=== PATIENT | male | born 1955 | race African-American/Black ===

== ENCOUNTER 2017-01-04 05:12 | Day surgery (SDC) | payer OTHER ==
[~2017-01-04] VITALS: Ht 182.9 cm; Wt 78.0 kg
--- NOTE | ~2017-01-04 | S ---
[facility] [place] [address] SURGICAL PATH RPT PROCEDURE Name: BROOKE BRYSON Room #: DEP [facility] M.R.#: [id number] Admission: 01/04/17 Date of : 57 Discharge: 01/04/17 Report #: [id number] Path Case #: [id number] PATHOLOGY REPORT COLLECTION DATE: 01/04/2017 RECEIVED DATE: 01/04/2017 SUBMITTING PHYS: Dr. Ji Gonzalez OTHER PHYS: SPECIMEN(S) RECEIVED: A.Tissue from left buttock decubitus * * * * * * * * * * * * FINAL DIAGNOSIS: Skin and subcutaneous tissue, tissue from left buttock decubitus, excision: - Ulceration and marked acute inflammation extending into subcutaneous tissues, consistent with the provided history of decubitus ulcer. (IUV:csd; d/t: 01/05/2017) PATHOLOGIST: Susana Cotto M.D. REPORT ELECTRONICALLY SIGNED BY: Susana Cotto M.D. DATE/TIME: 01/05/2017 14:32 * * * * * * * * * * * * GROSS PATHOLOGY: The specimen is received in formalin labeled "Brooke Bryson left buttock wound tissue". Received is an irregular segment of white-boggs pink to davies-boggs skin with attached yellow-boggs fibroadipose tissue measuring 3.7 x 3.6 x 3.0 cm in greatest dimensions. The specimen displays a circular defect measuring 1.4 x 1.0 cm which probes through the depth of the entire specimen. The specimen is submitted representatively in cassette A1. (CAA; 01/04/2017) CLINICAL HISTORY: Sacral decubitus INITIAL CPT CODE(S): A; 37025 Professional services performed by [facility] at [facility] [address], [place] [address] [facility] [address] [place] [address] SURGICAL PATH RPT PROCEDURE Name: MARGOBROOKE Room #: DEP [facility] Diego.#: [id number] Admission: 01/04/17 Date of : 57 Discharge: 01/04/17 Report #: [id number] Path Case #: [id number] Technical services performed by [facility] at [address] [place] [address], [facility] [address] [address]. [place] [address] PHONE: [phone] DIRECTOR: Clayton So M.D. * * * END OF REPORT * * *
--- NOTE | ~2017-01-04 | O ---
[facility] [place] [address] OPERATIVE REPORT Name: BROOKE ARAGON Room #: 150-2 [facility] M.R.#: [id number] Admission: 01/04/17 Attend Phys: Ji Gonzalez MD, Discharge: Date of : 57 Report #: [id number] THIS REPORT FOR: //name// CC: Ji Aguileraanipadmini DATE OF SERVICE: 01/04/2017 PREOPERATIVE DIAGNOSES: 1. Sacrogluteal decubitus ulcer. 2. Cerebral palsy. 3. Atrial fibrillation. POSTOPERATIVE DIAGNOSES: 1. Left ischial stage IV decubitus wound. 2. Cerebral palsy. 3. Atrial fibrillation. PROCEDURE PERFORMED: Excisional debridement of skin, subcutaneous tissue, muscle and bone of a left ischial decubitus wound, ultimately measuring 7 x 6 cm in dimension (42 square cm). Preoperative wound measurements were 2 x 2 cm with significant effie-wound induration and tunneling from the skin level, all the way down the narrow passage to the left ischial bone. SURGEON: Ji Gonzalez M.D. SHANK TAPPER: Daniel Montano MS3. ANESTHESIA: General endotracheal anesthesia. ESTIMATED BLOOD LOSS: Minimal (less than 10 mL). COMPLICATIONS: None appreciated. SPECIMENS: Culture swab to microbiology, as well as all excised tissue including bone to pathology. INDICATIONS: The patient is a 61-year-old -Slovenian male, with a longstanding history of cerebral palsy and generalized debilitation with blindness, who resides at a nursing home facility, and has had several decubitus wounds over the past, which underwent bedside debridement, and an aggressive local wound care. Unfortunately, the patient had recurrence of decubitus wounds about his sacral gluteal regions, and the patient was referred to me for evaluation. The examination in the office was quite difficult as the patient was very intolerant to positioning; however, it appeared the patient had severe sacral gluteal wounds. Indication was for debridement today and once [facility] [address] [place] [address] OPERATIVE REPORT Name: BROOKE ARAGON Room #: 150-2 [facility] M.R.#: [id number] Admission: 01/04/17 Attend Phys: Ji Gonzalez MD, Discharge: Date of : 57 Report #: [id number] positioned in the operating room, and is in the prone position, it was obvious that this was in fact a left ischial stage IV decubitus wound with a long tunneled tract, all the way to the left ischial bone. DESCRIPTION OF PROCEDURE: After explaining the risks, benefits, and alternatives of the procedure with the patient, as well as his parents and obtaining consent from his mother who is his DPOA. The patient was brought to the operating room, supine on his hospital bed. After conducting a thorough timeout procedure verifying correct patient and procedure, the patient was given general endotracheal anesthesia. Once adequate anesthesia was obtained, his SCDs were hooked up to the pneumatic compression device, and he was given a preoperative dose of antibiotics in line with the SCIP protocol. The patient was then positioned on the operating room table in the prone position with all pressure points appropriately padded. The patient's wound was exposed and prepped and draped in the standard surgical sterile fashion. Electrocautery was used to circumferentially debride all skin, subcutaneous tissue, and muscle from the periphery of the wound, carrying this down to the bed of the wound where there was bone evident. Culture swabs were taken and passed off the field for microbiologic analysis. Electrocautery was used to resect all nonviable bone, as well was taking this back to healthy bleeding bone. [employer] ultrasonic debridement tool was used to remove all biofilm, as well as remaining nonviable tissue. Electrocautery was then used again for hemostasis throughout. The wound was then packed tightly with sterile saline soaked Kerlix gauze, dressed with ABDs, and Medipore tape. At the end of the procedure, all instrument, needle, and sponge counts were correct. The patient tolerated the procedure without incident, was awakened in the operating room and transitioned to the recovery room in stable condition with no apparent complications. <ELECTRONICALLY SIGNED> By: Ji Gonzalez MD, FACS 01/04/17 1504 0915 1128 Ji Gonzalez MD, FACS /nt
--- NOTE | ~2017-01-04 | EKG ---
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
[~2017-01-04 05:12] MED LIST: ALDACTONE50 MG PO; ASPIR 8181 M1 PO; COLACE100 MG PO; DAILY VALUE1 EAC1 PO; DAKIN'S473 M1 TOP; DEPAKOTE250 MG PO; DEPAKOTE500 MG PO; DILANTIN100 MG PO; ENSURE PLUS237 ML PO; ENULOSE10 GM/15 M PO; FLOMAX0.4 MG PO; IRON325 PO; METOLAZONE 5 MG5 MG PO; MIRALAX17 GM PO; NEURONTIN 300300 M1 PO; ONDANSETRON HCL4 M2 PO; PEPCID20 MG PO; PHENOBARBITAL97.2 MG PO; POTASSIUM20 PO; TRAZODONE HCL50 MG PO; TYLENOL325 MG PO; UNASYN 3 GM VIAL3 G1 IV; VANCO 1.251.25 GM/25 IV; VITAMIN C500 MG PO; ZOFRAN ODT4 M1 PO; ZOFRAN ODT4 MG PO
[2017-01-04 07:46] LABS: CALCIUM 9.3 mg/dL (8.5-10.1); CREATININE 1.3 mg/dL (0.6-1.3)
== END 2017-01-04 09:40 ==
LOC: OR 05:12 → TBA 05:12 → OR 09:40
PROVIDERS: Surgery
DX: S71.002A Unspecified open wound, left hip, initial encounter (principal); G80.9 Cerebral palsy, unspecified; I48.91 Unspecified atrial fibrillation; D64.9 Anemia, unspecified; F32.9 Major depressive disorder, single episode, unspecified; X58.XXXA Exposure to other specified factors, initial encounter; Y93.89 Activity, other specified; Y92.89 Other specified places as the place of occurrence of the external cause; Y99.8 Other external cause status; Z98.890 Other specified postprocedural states
CPT/HCPCS: 50010; 50101; 50386; 50403; 53353; 53354; 62110; 62900; 70005

== ENCOUNTER 2017-08-02 06:56 | Inpatient (IN) | payer OTHER ==
[~2017-08-02] VITALS: Ht 177.8 cm; Wt 82.7 kg
--- NOTE | ~2017-08-02 | HC ---
[facility] [address] [place] [address] CONSULTATION Name: BROOKE ARAGON Room #: 217-P ADM IN M.R.#: [id number] Admission: 08/02/17 Attend Phys: Hunter De DO Discharge: Date of : 57 Report #: [id number] THIS REPORT FOR: //name// CC: FAM unknown Hunter De REASON FOR CONSULTATION: I was asked to evaluate concerning sepsis. HISTORY OF PRESENT ILLNESS: The patient is a 62-year-old with underlying history of cerebral palsy, multiple pressure wounds to his feet who is fairly incapacitated due to his neurologic issues and presents with decreased mental status, fever, tachycardia. Emergency Room evaluation after being transferred from [facility] revealed a creatinine up to 2.0 with a BUN of 105, white count of 19.6 and UA with many wbc's and many bacteria. The patient was unable to give any details. He was arousable and when asked questions, he stated that he did feel okay, but could not elaborate on any further questions. ALLERGIES: None known. MEDICATIONS: As noted on his MAR, which were reviewed. PAST MEDICAL HISTORY: Atrial fibrillation, cerebral palsy, left ankle osteomyelitis, multiple pressure wounds as noted, anemia, seizure disorder, ischemic heart disease, depression, urinary retention with a suprapubic catheter in place, dysphagia, bilateral cataract surgery, craniotomy for convulsions, macular degeneration right eye, myocutaneous flap to left hip wound. FAMILY HISTORY AND SOCIAL HISTORY: Otherwise, noncontributory. He is a nonsmoker. REVIEW OF SYSTEMS: The patient was unable to give me any further details, but he has been off oxygen with O2 saturation 95% on room air. No diarrhea. Peripheral IV in place. No vomiting. PHYSICAL EXAMINATION: VITAL SIGNS: Temperature 101.5, pulse 89, blood pressure 102/69. GENERAL: He was awake, able to respond, but in general was fairly lethargic. SKIN: He had healed wounds to his buttock region. EXTREMITIES: Multiple pressure wounds to his left foot and ankle region. Chronic appearing wound to his right ankle, lateral malleolus and a smaller wound over the plantar aspect of his medial heel. CHEST: Clear. HEART: Regular. ABDOMEN: Soft and nontender. Suprapubic catheter was in place with purulent urine in the tubing. LABORATORY STUDIES: Lactate 1.7. Urinalysis, many wbc's and many bacteria. [address] [address] CONSULTATION Name: BROOKE ARAGON Room #: 217-P [facility] IN .R.#: [id number] Admission: 08/02/17 Attend Phys: Hunter De DO Discharge: Date of : 57 Report #: [id number] Urine culture and blood cultures are pending. Chest x-ray, no acute pulmonary infiltrate. Sodium 149, potassium 4.5, bicarbonate of 33, creatinine was 2. Liver function test normal. Albumin at 3.2. Hemoglobin 16.7, platelet count 397,000, white count was 19.6. IMPRESSION: A 62-year-old care home resident with sepsis and findings of decreased mental status, leukocytosis, acute renal failure. I suspect source is urinary tract Also, has pressure wounds. Cerebral palsy. Blind in his right eye. RECOMMENDATION: We will continue IV antibiotic therapy for healthcare-associated sepsis. Urinary tract, most likely source. Continue with wound care. I have discussed with wound care team. We will need further offloading of both feet. Antibiotics will be adjusted for his renal failure. Repeat laboratory studies. Check ultrasound to ensure no obstruction. <ELECTRONICALLY SIGNED> By: Teo Ashton MD 08/03/17 1937 1146 1353 Teo Ashton MD /nt
[2017-08-02 06:57] VITALS: BP 125/71
[2017-08-02 07:20] LABS: HEMATOCRIT 51.1 % (42.0-52.0); HEMOGLOBIN 16.7 gm/dL (14.0-18.0); MCH 27.5 pg (26.0-34.0); MCHC 32.6 g/dL (28.0-37.0); MCV 84.2 fL (80.0-100.0); RBC 6.06 mil/uL (4.50-6.00); RDW 15.7 % (10.5-14.5); WBC 19.6 thou/uL (4.0-11.0)
[2017-08-02 07:32] LABS: URINE BLOOD 3+ (Negative); URINE COLOR YELLOW; URINE GLUCOSE-RANDOM* NEGATIVE (Negative); URINE KETONES TRACE (Negative); URINE PROTEIN (DIPSTICK) 3+ (Negative); URINE UROBILINOGEN 0.2 E.U./dl (0.2-1.0)
[2017-08-02 07:33] LABS: ANION GAP 9 mmol/L (7-16); BUN 105 mg/dL (7-18); CALCIUM 9.5 mg/dL (8.5-10.1); CHLORIDE 105 mmol/L (98-107); CO2 33 mmol/L (21-32); GLUCOSE 173 mg/dL (74-106); POTASSIUM 4.5 mmol/L (3.5-5.1); SODIUM 147 mmol/L (136-145)
[2017-08-02 07:37] LABS: URINE LEUKOCYTES-REFLEX 3+ (Negative)
[2017-08-02 07:38] LABS: ICTOTEST (BILI CONFIRMATORY) Negative (Negative); URINE BILIRUBIN NEGATIVE (Negative)
[2017-08-02 07:42] LABS: ALBUMIN 3.2 g/dL (3.4-5.0); ALKALINE PHOSPHATASE 97 U/L (46-116); SGOT 32 U/L (15-37); SGPT 47 U/L (30-65); TOTAL BILIRUBIN 0.5 mg/dL (<0.1-1.0); TOTAL PROTEIN 9.2 g/dL (6.4-8.2); TROPONIN-I < 0.04 ng/mL (<0.04-0.07)
[2017-08-02 07:52] LABS: CASTS None Seen /LPF (None Seen); SQUAMOUS None Seen /LPF (0-3); URINE WBC-REFLEX >25 Many /HPF (0-5)
[2017-08-02 07:53] LABS: URINE RBC 3-10 Few /HPF (0-2)
[2017-08-02 08:58] VITALS: BP 116/79
[2017-08-02 09:27] VITALS: BP 102/69
[2017-08-02 10:28] VITALS: BP 98/64
[2017-08-02 15:49] VITALS: BP 102/50
[2017-08-02 20:09] VITALS: BP 124/98
[2017-08-03 04:29] LABS: HEMATOCRIT 40.5 % (42.0-52.0); MCH 27.1 pg (26.0-34.0); MCV 84.7 fL (80.0-100.0); RBC 4.78 mil/uL (4.50-6.00); RDW 15.4 % (10.5-14.5); WBC 13.7 thou/uL (4.0-11.0)
[2017-08-03 04:35] LABS: CALCIUM 8.7 mg/dL (8.5-10.1); CREATININE 1.3 mg/dL (0.7-1.3); MAGNESIUM 3.1 mg/dL (1.8-2.4)
[2017-08-03 04:39] LABS: HEMOGLOBIN 12.9 gm/dL (14.0-18.0); MANUAL DIFF YES; PLATELET COUNT 289 thou/uL (150-400)
[2017-08-03 04:44] VITALS: BP 89/42
[2017-08-03 04:48] LABS: POTASSIUM 2.8 mmol/L (3.5-5.1)
[2017-08-03 06:52] LABS: ABSOLUTE NEUTROPHILS 12.6 thou/uL (1.4-8.2); TOTAL CELL COUNT 100
[2017-08-03 07:41] VITALS: BP 83/48
[2017-08-03 12:00] VITALS: BP 89/51
[2017-08-03 15:50] VITALS: BP 91/56
[2017-08-03 20:10] VITALS: BP 102/51
[2017-08-04 03:39] VITALS: BP 92/42
[2017-08-04 07:00] VITALS: BP 89/54
[2017-08-04 11:02] LABS: HEMATOCRIT 39.4 % (42.0-52.0); HEMOGLOBIN 12.4 gm/dL (14.0-18.0); MCH 26.9 pg (26.0-34.0); MCHC 31.5 g/dL (28.0-37.0); MCV 85.4 fL (80.0-100.0); RBC 4.61 mil/uL (4.50-6.00); RDW 15.7 % (10.5-14.5); WBC 9.2 thou/uL (4.0-11.0)
[2017-08-04 11:10] LABS: CALCIUM 8.5 mg/dL (8.5-10.1); CREATININE 1.2 mg/dL (0.7-1.3)
[2017-08-04 11:15] LABS: POTASSIUM 2.8 mmol/L (3.5-5.1)
[2017-08-04 11:22] VITALS: BP 93/45
[2017-08-04 16:00] VITALS: BP 89/51
[2017-08-04 19:22] VITALS: BP 100/50
[2017-08-05 03:24] VITALS: BP 109/38
[2017-08-05 03:58] LABS: ABSOLUTE NEUTROPHILS 5.6 thou/uL (1.4-8.2); BASOPHILS 0.3 % (0.0-2.0); HEMATOCRIT 37.7 % (42.0-52.0); LYMPHOCYTES 18.7 % (24.0-44.0); MCH 27.2 pg (26.0-34.0); MCHC 31.7 g/dL (28.0-37.0); MCV 85.6 fL (80.0-100.0); MONOCYTES 7.4 % (1.0-8.0); PLATELET COUNT 303 thou/uL (150-400); POLYS 73.6 % (36.0-66.0); RBC 4.41 mil/uL (4.50-6.00); RDW 15.4 % (10.5-14.5); WBC 7.7 thou/uL (4.0-11.0)
[2017-08-05 03:59] LABS: MANUAL DIFF NO
[2017-08-05 04:02] LABS: CALCIUM 8.1 mg/dL (8.5-10.1); CREATININE 1.1 mg/dL (0.7-1.3); MAGNESIUM 2.5 mg/dL (1.8-2.4); POTASSIUM 3.4 mmol/L (3.5-5.1)
[2017-08-05 07:50] VITALS: BP 100/63
[2017-08-05 11:52] VITALS: BP 110/47
[2017-08-05 16:45] VITALS: BP 87/50
[2017-08-05 19:45] VITALS: BP 102/48
[2017-08-06 04:15] VITALS: BP 99/51
[2017-08-06 09:01] VITALS: BP 118/51
[2017-08-06] MEDS ORDERED: CEFDINIR300 MG PO (10:33)
== END 2017-08-06 10:43 | DRG 871 ==
LOC: ER 06:56 → 2N 08:20 → EROBS 08:20 → 2N 10:05
PROVIDERS: Emergency Medicine; Nurse Practitioner
DX: A41.9 Sepsis, unspecified organism (principal); N17.1 Acute kidney failure with acute cortical necrosis; E44.1 Mild protein-calorie malnutrition; N39.0 Urinary tract infection, site not specified; E87.0 Hyperosmolality and hypernatremia; I48.91 Unspecified atrial fibrillation; G80.9 Cerebral palsy, unspecified; F32.9 Major depressive disorder, single episode, unspecified; B37.9 Candidiasis, unspecified; R13.10 Dysphagia, unspecified; R07.9 Chest pain, unspecified; R65.20 Severe sepsis without septic shock; G40.909 Epilepsy, unspecified, not intractable, without status epilepticus; H54.40 Blindness, one eye, unspecified eye; Z23 Encounter for immunization; Z98.42 Cataract extraction status, left eye; Z86.73 Personal history of transient ischemic attack (TIA), and cerebral infarction without residual deficits; Z98.41 Cataract extraction status, right eye; Z68.26 Body mass index [BMI] 26.0-26.9, adult
CPT/HCPCS: 10081

== ENCOUNTER 2020-09-08 10:21 | Emergency (ER) | payer OTHER ==
[~2020-09-08] VITALS: Ht 182.9 cm; Wt 95.7 kg
[~2020-09-08 10:21] MED LIST changes: +CEFDINIR300 MG PO
[2020-09-08] MEDS ORDERED: DILANTIN 100 M100 MG PO (10:24)
[2020-09-08] MEDS ORDERED: LINZESS145 MCG PO (10:25)
[2020-09-08] MEDS ORDERED: MILK OF MA400 MG/5 M PO (10:29)
[2020-09-08] MEDS ORDERED: OMEPRAZOLE 20 M20 M1 PO (10:30)
[2020-09-08] MEDS ORDERED: SENNA PLUS TAB1 EACH PO (10:30)
[2020-09-08] MEDS ORDERED: SIMVASTATIN80 MG PO (10:31)
[2020-09-08 10:52] LABS: URINE BILIRUBIN NEGATIVE (Negative); URINE BLOOD 2+ (Negative); URINE CLARITY SL CLOUDY; URINE COLOR YELLOW; URINE GLUCOSE-RANDOM* NEGATIVE (Negative); URINE KETONES NEGATIVE (Negative); URINE LEUKOCYTES-REFLEX 3+ (Negative); URINE NITRITE-REFLEX POSITIVE (Negative); URINE PROTEIN (DIPSTICK) 1+ (Negative); URINE SPECIFIC GRAVITY 1.015 (1.005-1.035)
[2020-09-08 10:57] LABS: ABSOLUTE NEUTROPHILS 12.2 thou/uL (1.4-8.2); BASOPHILS 0.2 % (0.0-2.0); HEMATOCRIT 42.4 % (42.0-52.0); HEMOGLOBIN 13.4 gm/dL (14.0-18.0); LYMPHOCYTES 8.2 % (24.0-44.0); MCH 26.3 pg (26.0-34.0); MCHC 31.6 g/dL (28.0-37.0); MCV 83.2 fL (80.0-100.0); MONOCYTES 10.3 % (1.0-8.0); PLATELET COUNT 416 thou/uL (150-400); POLYS 81.3 % (36.0-66.0); RDW 16.5 % (10.5-14.5)
[2020-09-08 11:03] LABS: BACTERIA-REFLEX >30 Many /HPF (None Seen); CASTS None Seen /LPF (None Seen); SQUAMOUS 0-3 Few /LPF (0-3); URINE WBC-REFLEX >25 Many /HPF (0-5)
[2020-09-08 11:04] LABS: CRYSTALS None Seen /LPF (None Seen); URINE RBC 3-10 Few /HPF (0-2)
[2020-09-08 11:06] LABS: CALCIUM 8.7 mg/dL (8.5-10.1)
[2020-09-08 11:12] LABS: ALBUMIN 2.9 g/dL (3.4-5.0); DIRECT BILIRUBIN 0.2 mg/dL (<0.1-0.2); TOTAL BILIRUBIN 0.4 mg/dL (0.2-1.0); TOTAL PROTEIN 7.4 g/dL (6.4-8.2)
[2020-09-08] MEDS ORDERED: KEFLEX500 M1 PO (12:40)
[2020-09-08 13:53] VITALS: BP 118/81
== END 2020-09-08 14:24 ==
LOC: ER 10:21
PROVIDERS: Emergency Medicine
DX: N39.0 Urinary tract infection, site not specified (principal); I48.91 Unspecified atrial fibrillation; Z86.2 Personal history of diseases of the blood and blood-forming organs and certain disorders involving the immune mechanism; Z79.899 Other long term (current) drug therapy; Z79.82 Long term (current) use of aspirin

== ENCOUNTER → 2021-04-09 | Outpatient (CLI) | payer OTHER ==
[~2021-04-09] VITALS: Ht 182.9 cm; Wt 76.0 kg
[~2021-04-09] MED LIST changes: +APAP W/CODEINE1 TA2 PO; -ASPIR 8181 M1 PO; +ASPIRIN EC81 M1 PO; +DILANTIN 100 M100 MG PO; +KEFLEX500 M1 PO; +LINZESS145 MCG PO; +MILK OF MA400 MG/5 M PO; +OMEPRAZOLE 20 M20 M1 PO; +PRO-STAT LIQUID30 M1 PO; +REMERON15 M2 PO; +SENNA PLUS TAB1 EACH PO; +SIMVASTATIN80 MG PO; +ZOCOR 10 MG TAB10 MG PO
[2021-04-09 12:05] VITALS: BP 129/47
--- NOTE | 2021-04-09 15:48 | NUR ---
LATE ENTRY: 1500 PT BROUGHT BACK TO CV HOLDING ROOM 9 AT 1500 FROM PACU. PT AWAKE ALERT. PROCEDURE NOT DONE DUE TO MUSCLE CONTRACTURES. [facility] CALLED FOR TRANSPORTATION BACK TO FACILITY. REPORT TO NIKKO NARANJOITE
== END | disposition home or self-care (01) ==
LOC: CATH 09:37
PROVIDERS: ATTEND Nuclear Medicine Nuclear Cardiology
DX: I73.9 Peripheral vascular disease, unspecified (principal); Z53.8 Procedure and treatment not carried out for other reasons; F32.9 Major depressive disorder, single episode, unspecified; D64.9 Anemia, unspecified; G80.9 Cerebral palsy, unspecified; Z86.73 Personal history of transient ischemic attack (TIA), and cerebral infarction without residual deficits; I48.91 Unspecified atrial fibrillation; K21.9 Gastro-esophageal reflux disease without esophagitis; N40.0 Benign prostatic hyperplasia without lower urinary tract symptoms; I25.9 Chronic ischemic heart disease, unspecified; Z98.890 Other specified postprocedural states; Z79.899 Other long term (current) drug therapy
CPT/HCPCS: 62110; 62900; 70005

== ENCOUNTER 2021-08-05 10:42 | Inpatient (IN) | payer OTHER ==
[~2021-08-05] VITALS: Ht 165.1 cm; Wt 71.2 kg
--- NOTE | ~2021-08-05 | EMS ---
[address] [address] EMS Patient Care Report Name: BROOKE ARAGON Room #: 434-P ADM IN M.R.#: [id number] Admission: 08/05/21 Attend Phys: Juwan Wagner MD Discharge: Date of : 57 Report #: [id number] THIS REPORT FOR: //name// Report Transmitted: 08/06/2021 07:43 EMS Care Summary [place], [place]/[facility] Incident [id number] @ 08/05/2021 10:09 Incident Location [address] Patient BROOKE ARAGON Male, 66 Years 1955 Patient Address [facility] [address] [address] Patient History Cerebral Palsy, Patient Allergies No known allergies, Patient Medications Dilantin, Simvastatin, Chief Complaint alt loc Disposition Transported No Lights/Lutz Dispatch Reason Sick Person Transported To [facility] Narrative nh stated pt [facility] to be [facility] for possible sepsis and alt loc x2 days. pt found supine in bed and alert. pt alert to self gcs 13. nh staff stated is normally confused but is more lethargic and confused today. nh staff [address] [address] EMS Patient Care Report Name: BROOKE ARAGON Room #: 434-P ADM IN M.R.#: [id number] Admission: 08/05/21 Attend Phys: Juwan Wagner MD Discharge: Date of : 57 Report #: [id number] stated pt is normally contracted. pt was transferred onto ems cot and was secured in a semi fowlers position without incident. pt was loaded into ambulance. pt was transported non emergent. transport was uneventful and pt rested on ems cot. pt care was transferred to appropriate staff and ems goes back in service. Initial Vitals @10:25P: 92,R: 20,BP: 122/68,Pain: 0/10,GCS: 13,Glucose: 260,SpO2: 99,Revised Trauma: 12, @10:37P: 90,R: 20,BP: 142/70,GCS: 13,SpO2: 99,Revised Trauma: 12, Assessments @10:20MENTAL:Confused,SKIN:No Abnormalities,HEENT:Head/Face: No Abnormalities,Eyes: No Abnormalities,Neck/Airway: No Abnormalities,LUNG SOUNDS:General: No Abnormalities,Left Upper: No Abnormalities,Right Upper: No Abnormalities,Left Lower: No Abnormalities,Right Lower: No Abnormalities,ABDOMEN:General: No Abnormalities,Left Upper: No Abnormalities,Right Upper: No Abnormalities,Left Lower: No Abnormalities,Right Lower: No Abnormalities,PELVIS//GI:No Abnormalities,EXTREMITIES:Left Arm: No Abnormalities,Right Arm: No Abnormalities,Left Leg: No Abnormalities,Right Leg: No Abnormalities,PULSE:NEURO:No Abnormalities,@10:34MENTAL:No Abnormalities,SKIN:No Abnormalities,HEENT:Head/Face: No Abnormalities,Eyes: No Abnormalities,Neck/Airway: No Abnormalities,LUNG SOUNDS:General: No Abnormalities,Left Upper: No Abnormalities,Right Upper: No Abnormalities,Left Lower: No Abnormalities,Right Lower: No Abnormalities,ABDOMEN:General: No Abnormalities,Left Upper: No Abnormalities,Right Upper: No Abnormalities,Left Lower: No Abnormalities,Right Lower: No Abnormalities,PELVIS//GI:No Abnormalities,EXTREMITIES:Left Arm: No Abnormalities,Right Arm: No Abnormalities,Left Leg: No Abnormalities,Right Leg: No Abnormalities,PULSE:NEURO:No Abnormalities, Impression Altered Mental Status Procedures @10:20 ALS Assessment Response: UnchangedSucceeded Timeline 10:07,Call Received 10:07,Dispatch Notified 10:09,Dispatched 10:09,En Route 10:19,On Scene 10:20,At Patient 10:20,ALS Assessment,Response: UnchangedSucceeded, [facility] [address] [place] [address] EMS Patient Care Report Name: BROOKE ARAGON Room #: 434-P ADM IN M.R.#: [id number] Admission: 08/05/21 Attend Phys: Juwan Wagner MD Discharge: Date of : 57 Report #: [id number] 10:25,BP: 122/68 M,PULSE: 92,RR: 20 R,SPO2: 99 Ox,ETCO2: ,B,PAIN: 0,GCS: 13, 10:33,Depart Scene 10:37,BP: 142/70 M,PULSE: 90,RR: 20 R,SPO2: 99 Ox,ETCO2: ,BG: ,PAIN: ,GCS: 13, 10:37,At Destination 11:01,Call Closed Disclaimer v1.1 Copyright 2020 [employer] This EMS Care Summary contains data elements from the applicable legal record (which may be displayed differently). It is designed to provide pertinent information for the following purposes: continuity of care, clinical quality, and state data reporting. The complete legal record is available to ED staff and administrators of the receiving hospital in [employer] Patient Tracker. All data is provided "as is."
[2021-08-05 10:43] VITALS: BP 124/64
[2021-08-05 11:42] LABS: ABSOLUTE NEUTROPHILS 13.5 thou/uL (1.4-8.2); BASOPHILS 0.3 % (0.0-2.0); HEMATOCRIT 32.4 % (42.0-52.0); LYMPHOCYTES 5.4 % (24.0-44.0); MCH 24.2 pg (26.0-34.0); MCHC 30.9 g/dL (28.0-37.0); MCV 78.3 fL (80.0-100.0); MONOCYTES 8.7 % (1.0-8.0); POLYS 85.6 % (36.0-66.0); RBC 4.13 mil/uL (4.50-6.00); RDW 17.3 % (10.5-14.5); WBC 15.7 thou/uL (4.0-11.0)
[2021-08-05 11:54] LABS: CALCIUM 8.5 mg/dL (8.5-10.1); CREATININE 0.9 mg/dL (0.7-1.3); POTASSIUM 4.1 mmol/L (3.5-5.1)
[2021-08-05 12:00] LABS: ALBUMIN 1.9 g/dL (3.4-5.0); TOTAL BILIRUBIN 0.5 mg/dL (0.2-1.0); TOTAL PROTEIN 7.6 g/dL (6.4-8.2)
--- NOTE | 2021-08-05 12:59 | EKG ---
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
[2021-08-05 13:19] LABS: PLATELET COUNT 850 thou/uL (150-400)
[2021-08-05 14:09] LABS: URINE BILIRUBIN NEGATIVE (Negative); URINE BLOOD 1+ (Negative); URINE COLOR YELLOW; URINE GLUCOSE-RANDOM* NEGATIVE (Negative); URINE KETONES TRACE (Negative); URINE PROTEIN (DIPSTICK) 1+ (Negative); URINE SPECIFIC GRAVITY 1.025 (1.005-1.035)
[2021-08-05 14:21] LABS: URINE LEUKOCYTES-REFLEX 2+ (Negative); URINE NITRITE-REFLEX POSITIVE (Negative)
[2021-08-05 14:22] LABS: URINE CLARITY HAZY
[2021-08-05 14:23] LABS: SQUAMOUS None Seen /LPF (0-3); URINE RBC 3-10 Few /HPF (NONE SEEN)
[2021-08-05 14:24] LABS: BACTERIA-REFLEX >30 Many /HPF (None Seen); CRYSTALS None Seen /LPF (None Seen); HYALINE CASTS 0-3 Few /LPF (None Seen)
[2021-08-05 14:45] VITALS: BP 138/66
[2021-08-05 15:19] VITALS: BP 145/62
[2021-08-05 20:48] VITALS: BP 138/64
--- NOTE | 2021-08-06 03:32 | NUR ---
ASSUMED PT CARE T 190.PT AWAKE/CONFUSED AND FORGETFUL.BLE WOUNDS NOTED,DRSG INTACT WITH MIN DRAINAGE TO THE LLE.PT CONTRACTED,REF TO BE REPOSITIONED SOMETIMES,FAVORS HIS L SIDE MORE THAN THE RIGHT.PT CONT ON IV ABX.PT NPO SINCE SHIFT STARTED FOR SX LATER TODAY.SUPRAPUBIC CATH IN PLACE WITH DARK ORANGE URINE NOTED IN THE BAG.FALL PRECAUTIONS IN PLACE.CALL LIGHT WITHIN REACH.
--- NOTE | 2021-08-06 11:18 | NUR ---
ASSUMED PT CARE THIS AM. PT IS ALERT & ORIENTED X2 SELF AND PLACE. PT IS BLIND ON R EYE. PT HAS IV SITE ON [place] 20 GAUGE. PT HAS SUPRAPUBIC CATH. CALLED ORTHO CONSULT THIS AM PER DR ROBERTSON. INFORMED HOSPITALIST THAT PT HAS BEEN NPO AND CALLED PREOP AND NO SURGERY IS SCHEDULED TODAY. ORDERED SPEECH THERAPY TO EVALUATE PT. PT IS ON ROOM AIR. WILL CONTINUE TO MONITOR PT. FOLLOW POC.
--- NOTE | 2021-08-06 15:43 | NUR ---
INITIAL ASSESSMENT: LONNY reviewed chart and spoke with nursing and attending physician. Pt was admitted from [facility] due to LLE wounds. Surgery consulted for evaluation for left AKA. Pt with hx of cerebral palsy. Pt is a LTC resident at [facility]. Pt is currently on IV abx. Wound care consulted. LONNY left voice message for pt's mother, Mavis ([phone]). LONNY faxed clinical updates to [facility] and notified admissions and provided update. [facility] to send LONNY pt's guardianship ppwk to place on pt's chart. LONNY is following to assist as needed with discharge planning.
[2021-08-06 16:25] VITALS: BP 140/53
[2021-08-06 19:03] VITALS: BP 95/43
--- NOTE | 2021-08-07 05:10 | NUR ---
PT'S NOT DRINKING WELL,URINE DARK IN COLOR.CLIENT PROJECT COORDINATOR ON DUTY NOTIFIED ONETIME ORDER FOR IVF NOTED AND CARRIED OUT.PT PULLED HIS IV AT HS,,WAS REPLACED.PT REPOSITIONED WHILE IN BED.DRSG TO HIS LLE REINFORCED DUE TO DRAINAGE.PRAFO BOOTS,LOW AIR LOSS MATTRESS IN PLACE.PT HAS BEEN NPO SINCE [place] FOR SX LATER TODAY.CALL LIGHT WITHIN REACH.
[2021-08-07 05:37] LABS: HEMATOCRIT 31.3 % (42.0-52.0); HEMOGLOBIN 9.6 gm/dL (14.0-18.0); MCH 23.6 pg (26.0-34.0); MCHC 30.6 g/dL (28.0-37.0); MCV 77.2 fL (80.0-100.0); RBC 4.05 mil/uL (4.50-6.00); RDW 17.2 % (10.5-14.5); WBC 17.8 thou/uL (4.0-11.0)
[2021-08-07 05:56] LABS: CALCIUM 8.1 mg/dL (8.5-10.1); POTASSIUM 3.5 mmol/L (3.5-5.1)
[2021-08-07 07:20] VITALS: BP 102/62
--- NOTE | 2021-08-07 08:53 | NUR ---
ASSUMED PT CARE THIS AM. PT IS ALERT & ORIENTED X2. PT HAS L HAND SALINE LOCKED. PT HAS BEEN NPO SINCE MIDNIGHT. PT HAS SUPRAPUBIC CATH IN PLACE. PT HAS PRAFO BOOTS, LOW AIR LOSS MATTRESS, WEDGES. PT IS BLIND ON R EYE. PT IS CURRENTLY HAVING SURGERY. WILL CONTINUE TO MONITOR.
--- NOTE | 2021-08-07 11:34 | NUR ---
SW reviewed chart and spoke with nursing and attending physician. Pt is currently off the unit having left AKA. SW spoke with pt's mother/legal guardian, Mavis, via phone to provide update and confirmed discharge plan. Pt's mother confirms plan is for pt to discharge back to [facility] when medically stable. LONNY will fax clinical updates to [facility] when available. LONNY is following to assist as needed with discharge planning.
--- NOTE | 2021-08-07 12:26 | HC ---
[facility] [place] [place] [address] CONSULTATION Name: BROOKE ARAGON Room #: 434-P ADM IN M.R.#: [id number] Admission: 08/05/21 Attend Phys: Juwan Wagner MD Discharge: Date of : 57 Report #: [id number] THIS REPORT FOR: cc: Steve Ashton MD, Christopher B. MD Barry, Joseph W. MD ~ DATE OF SERVICE: 08/06/2021 INFECTIOUS DISEASE CONSULTATION ATTENDING PHYSICIAN: Dr. Wagner. REASON FOR EVALUATION: Multiple bilateral lower extremities have been nonhealing due to multifactorial issues. He does have severe contractures, apparently had some fevers. He does have fairly profound deficits on a chronic basis and has underlying cerebral palsy and neuromuscular dysfunction. HISTORY OF PRESENT ILLNESS: He has been followed by wound care and recommended additional surgery, perhaps up to and including an [id number] amputation, unable to give any details of the history per se. He at one point admitted to some abdominal pain and he said he was hungry. Denied pulmonary related complaints. He underwent testing, coronavirus was negative. Lactic acid elevated at 2.3, repeat was 1.6. Procalcitonin 0.81. Mildly elevated LFTs, AST of 111, ALT of 105, albumin is 1.9. Sed rate of 115. Initial white count of 15.7, platelet count is elevated at 850, perhaps suggestive of acute phase reactant, underlying inflammatory process. Urinalysis did show moderate pyuria, 16-25 white cells, greater than 30 bacteria. Blood cultures were collected at time of admission, 1 out of 2 with growth of gram-positive cocci, awaiting ID. Urine culture with growth of Pseudomonas aeruginosa. He has not had recorded temperature elevations while here. He was empirically started on antibiotics with meropenem, tentatively planned for surgical evaluation. ALLERGIES: None known. CURRENT MEDICATIONS: Include meropenem, ____ fluids. PAST MEDICAL HISTORY: As described above, cerebral palsy, cardiomyopathy, ischemic heart disease, neuromuscular dysfunction, anemia, seizures, restless leg syndrome, reflux, peripheral vascular disease, severe bilateral lower extremity contractures, TIAs. SOCIAL HISTORY: Nonsmoker, no ethanol, no illicit drug use. FAMILY HISTORY: Noncontributory. REVIEW OF SYSTEMS: Not reliably obtained. [address] [address] CONSULTATION Name: BROOKE ARAGON Room #: 434-P [facility] IN M.R.#: [id number] Admission: 08/05/21 Attend Phys: Juwan Wagner MD Discharge: Date of : 57 Report #: [id number] PHYSICAL EXAMINATION: GENERAL: Appears chronically ill, undernourished, it is clear he has some deficits. He is awake. VITAL SIGNS: Temperature 97.2, pulse 67, respirations 18, blood pressure is 138/64. HEENT: Normocephalic. There is opacification of the right eye. Clinical evidence of blindness in left eye with extraocular muscles intact. NECK: Supple. LUNGS: Somewhat diminished, few scattered crackles. HEART: Irregular, do not appreciate a murmur. ABDOMEN: Difficult to examine due to the contractures of lower extremities with severe flexion of the hip bilaterally. There is some extensive dressings throughout the entirety of the foot and leg and over the knee. LABORATORY AND X-RAY DATA: Cultures, urine with growth of greater than ____ pseudomonas pending susceptibilities. Blood cultures 1 out of 2 with gram-positive cocci. Lactic acid repeat was 1.6, down from 2.3. Urinalysis showed moderate pyuria. Chest x-ray showed no acute process. CBC: White count 15.7, H and H 10.0 and 32.4, platelets of 850. Sed rate of 115. Electrolytes: Sodium 145, potassium 4.1, chloride 106, bicarbonate is 31, anion gap of 8, BUN and creatinine 31 and 0.9, glucose of 148, AST of 111, ALT of 105, alkaline phosphatase of 343, albumin of 1.9, total protein 7.6. Estimated GFR of 103. ASSESSMENT AND PLAN: Chronic ulceration bilaterally have been nonhealing, likely multifactorial etiology. Certainly given his parameters with acute phase reactants, inflammatory markers being elevated, we would suggest probable chronic deep seated infection, ____ may be osteomyelitis. At this point, he is not overtly toxic and does not appear to be in great distress, certainly would be at risk for additional complications. Continue broad spectrum therapy. I suspect the blood cultures are likely a false positive. Treat the urinary tract infection as well. <ELECTRONICALLY SIGNED> By: Chuck Cormier MD 08/07/21 1226 1356 3890 Chuck Cormier MD /nt
[2021-08-07 13:57] VITALS: BP 108/56
[2021-08-07 19:33] VITALS: BP 97/50
--- NOTE | 2021-08-08 02:54 | NUR ---
ASSUMED PT CARE AT 1900.PT WAS OBSERVED LYING ON HIS BED WITH HIS EYES CLOSED AT SHIFT CHANGE.S/S OF PAIN NOTED AFTER REPOSITIONING PT,MED GIVEN.DRSG TO HIS LLE C/D/I.DRSG TO HIS R LE REINFORCED.PT CONT ON IVF AND IV ABX.BLE PRAFO BOOTS AND LW AIR LOSS MATTRESS IN PLACE.SUPRAPUBIC CATH IN PLACE WITH DARK YELLOW URINE NOTED IN THE BAG.PT RESTING ON HIS BED AT THIS TIME.CALL LIGHT WITHIN REACH.
[2021-08-08 03:50] VITALS: BP 116/56
[2021-08-08 07:02] VITALS: BP 121/58
--- NOTE | 2021-08-08 09:53 | NUR ---
Rec start on MVI, zinc and vitamin C supplementation
--- NOTE | 2021-08-08 12:24 | NUR ---
LONNY reviewed chart and spoke with nursing and attending physician. Pt is POD#1 left AKA. Pt is on IV abx. LONNY discussed case with ID physician. Pt to be discharged on PO Zyvox and possibly another PO abx. LONNY faxed clinical updates to [facility] for review. Facility will skill pt. Will need insurance authorization. PT/OT evals ordered today. Pt may be ready to discharge over the weekend pending insurance authorization. LONNY requested attending physician update pt's mother/legal guardian regarding discharge timeframe. LONNY is following to assist as needed with discharge planning.
[2021-08-08 15:21] VITALS: BP 129/53
--- NOTE | 2021-08-08 18:41 | NUR ---
A/O X 2. ROOM AIR. BEDBOUND, LEFT HAND IV. Q2HR TURN. BUTTS IN PLACE. LAST BM 08/07. ON CONTACT PPX FOR MRSA OF BLOOD. WOUND CARE COMPLETED LEFT LEG WOUND CARE. NURSE SPOKE WITH HIS MOTHER TO UPDATE HER. TOLERATED IV ABT WELL. NORCO GIVEN FOR PAIN.
[2021-08-08 20:44] VITALS: BP 132/54
--- NOTE | 2021-08-09 03:23 | NUR ---
ASSESSED AT START OF SHIFT. PT RESTING IN BED. HAD 2 HUGE BM. INCONTINENT. FOLLEY INTACT. EVENING MEDS CRUSHED AND GIVEN. PT MOTHER CALLED UNIT AND NURSE UPDATED ON CARE. ISOLATION MAINTAINED FOR MRSA IN THE BLOOD. FALL PREC IN PLACE AND WILL CONT TO MONITOR.
[2021-08-09 03:51] LABS: HEMATOCRIT 31.2 % (42.0-52.0); HEMOGLOBIN 9.3 gm/dL (14.0-18.0); MCH 23.3 pg (26.0-34.0); MCHC 29.9 g/dL (28.0-37.0); RDW 17.4 % (10.5-14.5); WBC 14.9 thou/uL (4.0-11.0)
[2021-08-09 04:07] LABS: CALCIUM 7.6 mg/dL (8.5-10.1); CREATININE 0.9 mg/dL (0.7-1.3); POTASSIUM 3.8 mmol/L (3.5-5.1)
[2021-08-09 06:44] LABS: URINE BILIRUBIN NEGATIVE (Negative); URINE BLOOD 2+ (Negative); URINE CLARITY SL CLOUDY; URINE COLOR YELLOW; URINE GLUCOSE-RANDOM* NEGATIVE (Negative); URINE KETONES NEGATIVE (Negative); URINE LEUKOCYTES-REFLEX TRACE (Negative); URINE PROTEIN (DIPSTICK) 2+ (Negative)
[2021-08-09 06:45] LABS: URINE NITRITE-REFLEX POSITIVE (Negative)
[2021-08-09 07:11] VITALS: BP 120/62
[2021-08-09 07:28] LABS: CASTS None Seen /LPF (None Seen); SQUAMOUS 0-3 Few /LPF (0-3)
[2021-08-09 07:29] LABS: BACTERIA-REFLEX 1-9 Few /HPF (None Seen); URINE RBC 1-2 Rare /HPF (NONE SEEN); URINE WBC-REFLEX 0-5 Rare /HPF (0-5); YEAST-REFLEX Present (None Seen)
[2021-08-09 07:30] LABS: AMORPHOUS URATES Few /LPF (None Seen)
--- NOTE | 2021-08-09 10:44 | NUR ---
A/O X 2 SELF AND SITUATION. ROOM AIR. BEDBOUND. LEFT HAND IV INFILTRATED AND IV TEAM CALLED TO PLACE NEW ONE. LEFT STUMP WRAPPED NO DRAINAGE NOTED, NOT TO UNDRESS UNTIL WEDNESDAY PER WOUND TEAM. TOLERATING PUREE AND NECTAR THICK LIQUIDS WELL. Q2HR TURN. MEDS CRUSHED WITH APPLESAUCE.PAIN NOTED LEFT STUMP-NORCO GIVEN PRN.
[2021-08-09 15:56] VITALS: BP 105/53
[2021-08-09 20:39] VITALS: BP 99/57
--- NOTE | 2021-08-10 04:02 | NUR ---
RECEIVED CARE OF THIS PATIENT AT 1900. PATIENT ALERT AND ORIENTED TO SELF ONLY. SUPRAPUBIC CATH PATENT CHANEL URINE WITH SEDIMENT. ALL DRESSINGS INTACT. JODIE LOWER EXT CONTRACTED. DENIES PAIN. SLEPT MOST OF NIGHT.
[2021-08-10 07:42] VITALS: BP 104/61
[2021-08-10 16:40] VITALS: BP 92/60
[2021-08-10 19:39] VITALS: BP 116/57
--- NOTE | 2021-08-11 02:19 | NUR ---
PT'S IV INFILTRATED AT START OF SHIFT,NEW IV PLACED TO HIS LFA.PT ALERT/CONFUSED AND FORGETFUL.DRSG TO HIS LLE C/D/I.EDEMA TO HIS RLE,WOUND DRSG INTACT.PT REPOSITIONED WHILE IN BED.FALL/ISOLATION AND SWALLOW PRECAUTIONS IN PLACE.BLOOD FILLED BLISTER TO HIS R BUTTOCK INTACT.BRUISING NOTED AROUND IT.SUPRAPUBIC CATH IN PLACE.PT SLEEPING AT THIS TIME.CALL LIGHT WITHIN REACH.
[2021-08-11 03:37] VITALS: BP 91/47
[2021-08-11 05:21] LABS: HEMATOCRIT 26.6 % (42.0-52.0); MCH 23.4 pg (26.0-34.0); RBC 3.42 mil/uL (4.50-6.00); RDW 17.1 % (10.5-14.5); WBC 11.9 thou/uL (4.0-11.0)
[2021-08-11 05:31] LABS: CALCIUM 7.6 mg/dL (8.5-10.1); CREATININE 0.8 mg/dL (0.7-1.3); POTASSIUM 3.2 mmol/L (3.5-5.1)
[2021-08-11 07:15] VITALS: BP 88/47
--- NOTE | 2021-08-11 09:22 | NUR ---
LONNY reviewed chart. SW faxed updated clinical and therapy info to [facility] for review. Will need insurance auth for pt to return using his skilled benefit. Need PT eval. Pt febrile and on IV abx. Pt is s/p left AKA. SW is following to assist as needed with discharge planning.
--- NOTE | 2021-08-11 10:00 | NUR ---
A/O X 2 SE;F AMD SITUATION. ROOM AIR. BEDBOUND. LEFT FOREARM IV WITH D5 INFUSING @ 75 MLS/HR. Q2HR TURN. FEEDER. MEDS CRUSHED AND NECTAR THICK LIQUIDS-TOLERATING WELL. CONTACT ISO MRSA BLOOD. TOLERATING IV ABT WELL. NORCO GIVEN FOR LEFT STUMP PAIN. BILATERAL STUMPS WRAPPED AND NO DRAINAGE NOTED. HIS MOTHER CALLED FOR AN UPDATE. SUPRAPUBIC CATH- CHANEL URINE NOTED.
--- NOTE | 2021-08-11 11:03 | HC ---
[facility] [place] [address] [address] CONSULTATION Name: BROOKE ARAGON Room #: 434-P ADM IN M.R.#: [id number] Admission: 08/05/21 Attend Phys: Juwan Wagner MD Discharge: Date of : 57 Report #: [id number] THIS REPORT FOR: cc: Steve Ashton MD, Christopher B. MD Althoff, Jeffrey R. MD ~ DATE OF SERVICE: 08/06/2021 CHIEF COMPLAINT: Infected ulcerations, bilateral lower extremities. HISTORY OF PRESENT ILLNESS: This is a 66-year-old male patient who resides at [facility]. 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 He has been very immobile and has developed multiple areas of pressure ulceration on both legs, left much greater than the right. We have exhausted all local wound care methods including debridement, antibiotic therapy, offloading techniques with progressive ulceration to the left leg. The right leg has actually been improved. He also was noted to have a history of peripheral vascular disease; however, we have not been able to successfully undertake any sort of revascularization due to severe flexion contractures of his knees and hips. It was felt after evaluation last week that he would most likely best be treated with above-knee amputation on the left side. This was discussed with his mother who was agreeable as well as with the patient, who was reluctantly agreeable. 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 SOCIAL HISTORY: The patient lives in a long-term care facility. Denies alcohol or tobacco use. FAMILY HISTORY: Noncontributory. MEDICATIONS: Aspirin, multivitamin, phenobarbital, Aldactone, ascorbic acid, Enulose, Dilantin, Linzess, omeprazole, Remeron, Zocor, Zofran. ALLERGIES: No known drug allergies. REVIEW OF SYSTEMS: Not obtainable due to the patient's condition. PHYSICAL EXAMINATION: VITAL SIGNS: The patient's vital signs at this time include temperature 36.2, pulse 67, respiration of 18, blood pressure 138/64. GENERAL: This is a chronically ill-appearing male patient, appears to be in mild discomfort. [address] [address] CONSULTATION Name: BROOKE ARAGON Room #: 434-[facility] IN M.R.#: [id number] Admission: 08/05/21 Attend Phys: Juwan Wagner MD Discharge: Date of : 57 Report #: [id number] HEENT: Exam of the head is normocephalic. He has a cataract of the right eye. Nose and throat are clear. NECK: Supple. LUNGS: Diminished. HEART: Regular, without murmur. ABDOMEN: Soft. Bowel sounds are present. EXTREMITIES: Lower extremities show severe flexion contractures at the hips and knees. He has ulceration to the right medial knee and right lateral foot and ankle region that are actually improved, clean and granulating. Left leg shows multiple ulcerations 8 in total involving the knee, popliteal fossa, lateral and medial calf and left foot. There is exposed tendon present. There is odor and some drainage. NEUROLOGIC: The patient has some spasticity. He has no motor control of his lower extremities with severe contractures present. LABORATORY STUDIES: Include sodium 145, potassium 4.1, chloride 106, CO2 31, BUN 31, creatinine 0.9, glucose 148. C-reactive protein is 347. White blood cell count is 15.7 with a hemoglobin of 10.0. CLINICAL IMPRESSION: 1. Multiple pressure ulcerations to bilateral lower extremities, left much greater than right. 2. Wound infection and likely underlying osteomyelitis. 3. Peripheral arterial disease with an inability to revascularize due to severe flexion contractures. 4. History of cerebral palsy. 5. Seizure disorder. RECOMMENDATIONS: At this point in time, the patient is admitted for above-knee amputation. We will consult orthopedic surgery. We will recommend above-knee amputation and then return to [facility] for postoperative care once he is stable. I appreciate being asked to see him in consultation. <ELECTRONICALLY SIGNED> By: Mauricio Lovell MD 08/11/21 1103 [id number] [id number] Mauricio Lovell MD /nt
[2021-08-11] MEDS ORDERED: ZYVOX600 MG PO (11:56)
[2021-08-11 15:52] VITALS: BP 99/53
[2021-08-11 19:15] VITALS: BP 117/53
--- NOTE | 2021-08-12 02:22 | NUR ---
ASSESSED AT START OF SHIFT. PT RESTING IN BED. EVENING MEDS GIVEN CRUSHED IN PUDDING. IV INTACT AND FLUIDS INFUSING. CATH IN PLACE. ISOLATION MAINTAINED FOR MRSA IN BLOOD. PT HAD A BM TONIGHT. STOMP DRESSING INTACT WILL CONT TO MONITOR. POSSIBLE DC TOMORROW.
--- NOTE | 2021-08-12 10:07 | PATH ---
[facility] [address] [place] [address] PATHOLOGY RPT PROCEDURE Name: BROOKE BRYSON Room #: 434-P ADM IN M.R.#: [id number] Admission: 08/05/21 Date of : 57 Discharge: Report #: [id number] Path Case #: [id number] [facility] Accession Number: [id number] . 01 Material submitted: . leg - LEFT LEG. Modifiers: left . 01 Clinical history: . ABOVE KNEE AMPUTATION OSTEOMYELITIS . 02 Diagnosis: Leg, left leg, above knee amputation: - Skin and subcutaneous tissue with ulceration and gangrenous necrosis extending into underlying bone. - Bone with acute osteomyelitis and osteonecrosis. - Bone surgical margin grossly viable. - Skin and subcutaneous tissue margin viable. - Popliteal vasculature showing complete luminal occlusion in one of the vessels. (IUV:hunter; 08/11/2021) MBR 08/11/2021 1544 Local . 02 Electronically signed: . Susana Cotto MD, Pathologist NPI- [id number] . 01 Gross description: . The specimen is received fresh in a red biohazard bag, labeled "Brooke Bryson, left leg". Received is a left [id number] amputation measuring 17.5 cm from heel to toe, 45.9 cm from heel to skin margin, and 54.2 cm from heel to femoral bone margin. The bone margin is blunt in appearance, consistent with transection, and appears grossly unremarkable. The skin and soft tissue margins appear viable. All five toes are present. There are multiple pink-red, focally hemorrhagic to brown-like, necrotic-appearing lesions ranging in size from 1.5 x 1.1 to 11.8 x 2.8 cm, the closest of which is 1.0 cm from the closest skin margin. In total, 11 lesions are counted (please see attached photographs). On the lateral/posterior aspect of the calf, there is an ill-defined, flat and light brown possible atypical skin lesion measuring 17.7 x 6.6 cm, which is 5.0 cm from the closest skin margin. Sectioning through the bone underlying the lesion on the medial/anterior aspect of the knee is accomplished against slightly gritty resistance. Sectioning through the popliteal vasculature reveals patent lumens with no gross evidence of calcifications. The specimen is submitted union contract representative as follows: . A1 union contract representative sections of skin [place] [address] PATHOLOGY RPT PROCEDURE Name: BROOKE BRYSON Room #: 434-P ADM IN M.R.#: [id number] Admission: 08/05/21 Date of : 57 Discharge: Report #: [id number] Path Case #: [id number] adjacent closest lesion A2 union contract representative section of lesion with underlying bone overlying medial aspect of calcaneus, following decalcification A3 union contract representative section of lesion with underlying bone on medial/anterior aspect of knee (closest to margin), following calcification A4 bone marrow from proximal femoral margin, following light decalcification A5-A6 union contract representative sections of popliteal vasculature. . Gross photographs are taken. (CAA; 08/08/2021) QAC/QAC 08/08/2021 1006 Local . 02 Pathologist provided ICD-10: L97.929, I96, M86.172, M87.9 . 02 CPT . 392330, 486011 Specimen Comment: A courtesy copy of this report has been sent to [phone], [phone] Specimen Comment: [id number], Specimen Comment: Report sent to , DR MENDOZA / DR HERBERT Specimen Comment: A duplicate report has been generated due to demographic updates. Performed at: [address] [facility], [place], [place] [id number] MD Kwesi Ferrer MD Phone: [phone] Performed at: [address] [facility] [id number] MD Susana Cotto MD Phone: [phone]
--- NOTE | 2021-08-12 12:24 | NUR ---
DISCHARGE NOTE: LONNY reviewed chart and spoke with nursing and attending physician. LONNY notified attending physician of 1000 deadline for peer to peer with [facility]'s medical collections representative. LONNY received call back from [facility] stating that SNF auth has been denied due to peer to peer not being called prior to 1000 and pt does not meet criteria for skilled level of care. Pt is back to his baseline and will return as senior care care. [facility] is able to request auth for Part B services if needed. LONNY updated Fadia in admissions of outcome. Pt is medically stable for discharge today. LONNY faxed discharge ppwk and confirmed info was received with Fadia at [facility]. Stretcher van transportation scheduled for 1400 per facility's arrangements. Chart copy requested. Nursing provided with number to call report. LONNY spoke with pt's mother/legal guardian, Mavis, to provide update. Mavis is aware and in agreement with discharge plan. No additional SW needs identified at this time. LONNY is available to assist should needs arise.
== END 2021-08-12 14:50 | DRG 853 ==
LOC: ER 10:42 → 4S 13:50 → EROBS 13:50 → 4S 14:55
PROVIDERS: Hospitalist; Nurse Practitioner; Specialist; ADMIT Hospitalist; ATTEND Hospitalist
PROC: 0Y6D0Z1 Detachment at Left Upper Leg, High, Open Approach (ICD-10-PCS; principal; 2021-08-07)
DX: A41.01 Sepsis due to Methicillin susceptible Staphylococcus aureus (principal); L89.513 Pressure ulcer of right ankle, stage 3; E43 Unspecified severe protein-calorie malnutrition; L03.116 Cellulitis of left lower limb; L03.115 Cellulitis of right lower limb; N39.0 Urinary tract infection, site not specified; I42.9 Cardiomyopathy, unspecified; E87.0 Hyperosmolality and hypernatremia; M86.8X6 Other osteomyelitis, lower leg; I73.9 Peripheral vascular disease, unspecified; Z20.822 Contact with and (suspected) exposure to COVID-19; I48.91 Unspecified atrial fibrillation; F32.9 Major depressive disorder, single episode, unspecified; G25.81 Restless legs syndrome; N40.0 Benign prostatic hyperplasia without lower urinary tract symptoms; K21.9 Gastro-esophageal reflux disease without esophagitis; S81.802A Unspecified open wound, left lower leg, initial encounter; S81.801A Unspecified open wound, right lower leg, initial encounter; G40.909 Epilepsy, unspecified, not intractable, without status epilepticus; R53.81 Other malaise; F44.4 Conversion disorder with motor symptom or deficit; B96.5 Pseudomonas (aeruginosa) (mallei) (pseudomallei) as the cause of diseases classified elsewhere; Z86.73 Personal history of transient ischemic attack (TIA), and cerebral infarction without residual deficits; Z68.26 Body mass index [BMI] 26.0-26.9, adult; Z79.82 Long term (current) use of aspirin; Z79.899 Other long term (current) drug therapy; X58.XXXA Exposure to other specified factors, initial encounter; Y93.89 Activity, other specified; Y92.89 Other specified places as the place of occurrence of the external cause; Y99.8 Other external cause status; Z28.21 Immunization not carried out because of patient refusal
CPT/HCPCS: 10195; 50010; 50101; 50386; 51412; 53000; 56524; 56528; 56531; 57091; 57179; 58585; 62110; 62900; 70005